=== PATIENT | male | born 1955 | race Two or more races ===

== ENCOUNTER 2024-09-15 07:30 | Inpatient (IN) | payer OTHER ==
[~2024-09-15] VITALS: Ht 58.4 cm; Wt 81.6 kg
[2024-09-15 08:35] VITALS: BP 136/83
[2024-09-15] MEDS ORDERED: MICARDIS40 MG PO (08:43)
[2024-09-15] MEDS ORDERED: [UNRECOGNIZED DRUG - OTHER] (08:44)
[2024-09-15] MEDS ORDERED: GLIPIZIDE ER2.5 MG PO (08:44)
[2024-09-15] MEDS ORDERED: TAMS0.4C PO (08:45)
[2024-09-15 08:46] LABS: HEMATOCRIT 47.3 % (39.0-48.0); HEMOGLOBIN 16.3 g/dL (13-16.00); MEAN CELL VOLUME 87.8 fL (80.0-100.00); MEAN CORPUSCULAR HEMOGLOBIN 30.3 pg (27.00-32.0); MEAN CORPUSCULAR HGB CONC 34.5 g/dl (32.0-36.0); PLATELET COUNT 137 K/uL (150-450); RED BLOOD COUNT 5.38 M/uL (4.00-6.00); RED CELL DISTRIBUTION WIDTH 13.8 % (11.5-14.5)
[2024-09-15 08:49] VITALS: BP 136/83
[2024-09-15 08:52] LABS: PH,URINE 6.5 (5.0-8.0); URINE APPEARANCE Clear; URINE BILIRRUBIN Negative (NEGATIVE); URINE COLOR Yellow; URINE GLUCOSE Negative (NEGATIVE); URINE KETONE Negative (NEGATIVE); URINE LEUKOCYTE Trace; URINE NITRATE Negative; URINE PROTEIN Negative (NEGATIVE)
[2024-09-15 08:59] LABS: URINE EPITHELIAL CELLS 3.1 uL (0.0-38.8); URINE RBC 28.5 uL (0.0-20.8); URINE WBC 14.3 uL (0.0-23.2)
[2024-09-15 09:06] LABS: INR 1.15; PARTIAL THROMBOPLASTIN TIME 29.9 SECONDS (22.0-34.0); PROTHROMBIN TIME 12.4 SECONDS (9.0-11.5)
[2024-09-15 09:33] LABS: URINE BLOOD TRACES; URINE CAST 0.14 uL (0.0-1.40)
[2024-09-15 09:46] LABS: BILIRUBIN TOTAL 1.21 mg/dL (0.3-1.2); CALCIUM 10.5 mg/dL (8.5-10.1); CREATININE SERUM 0.77 mg/dL (0.70-1.30); GFR 100.17; POTASSIUM 3.61 mEq/L (3.5-5.1)
[2024-09-26] MEDS ORDERED: DEXAMETHASONE SODIUM PHOSPHATE 4 MG/ML VIAL ONE (11:31)
[2024-09-26] MEDS ORDERED: CEFAZOLIN SODIUM 1,000 MG VIAL ONE (11:38)
[2024-09-26] MEDS ORDERED: CHLORHEXIDINE GLUCONATE 120 ML BOTTLE TOP ONE (11:38)
[2024-09-26] MEDS ORDERED: POTASSIUM CITR15 MEQ (13:27)
[2024-09-26] MEDS ORDERED: PANTOPRAZOLE SO40 MG (13:27)
[2024-09-26] MEDS ORDERED: FAMOTIDINE40 MG (13:27)
[2024-09-26] MEDS ORDERED: FLONASE16 GM (13:27)
[2024-09-26] MEDS ORDERED: DEXTROSE 50 % IN WATER 0.5 G/ML DISP.SYRIN IV PRN (14:15)
[2024-09-26] MEDS ORDERED: ONDANSETRON HCL 2 MG/ML VIAL IV PRN (14:15)
[2024-09-26] MEDS ORDERED: ENALAPRILAT DIHYDRATE 1.25 MG/ML VIAL IV PRN (14:15)
[2024-09-26] MEDS ORDERED: INSULIN LISPRO 1,000 UNIT/10 ML UNITS SUBCUTANEO PRN (14:15)
[2024-09-26] MEDS ORDERED: MORPHINE SULFATE 4 MG/ML VIAL IV ONE (14:35)
[2024-09-26] MEDS ORDERED: CYCLOBENZAPRINE HCL 5 MG TABLET PO SCH (17:00)
[2024-09-26] MEDS ORDERED: ACETAMINOPHEN 500 MG GEL..CAP PO SCH (17:00)
[2024-09-26] MEDS ORDERED: TRAMADOL HCL 50 MG TABLET PO SCH (17:00)
[2024-09-26] MEDS ORDERED: INSULIN LISPRO 1,000 UNIT/10 ML UNITS SUBCUTANEO ONE (19:05)
[2024-09-26] MEDS ORDERED: PANTOPRAZOLE SODIUM 40 MG/VIAL VIAL IV PUSH SCH (21:00)
[2024-09-27] VITALS: BP 143/83; O2SAT 95
[2024-09-27 08:00] VITALS: BP 144/75; O2SAT 97
[2024-09-27] MEDS ORDERED: TAMSULOSIN HCL 0.4 MG CAP PO SCH (09:00)
[2024-09-27] MEDS ORDERED: GLIPIZIDE 2.5 MG PO SCH (09:00)
== END 2024-09-27 14:10 | disposition home or self-care (01) | DRG 627 ==
LOC: SURG 09-26 06:48 → O/R 09-26 06:48 → SURH 09-26 07:30 → SURG 09-26 14:59
PROVIDERS: ADMIT Surgery; ATTEND Surgery
PROC: 0GBL0ZZ Excision of Right Superior Parathyroid Gland, Open Approach (ICD-10-PCS; 2024-09-26)
PROC: 0GBM0ZZ Excision of Left Superior Parathyroid Gland, Open Approach (ICD-10-PCS; 2024-09-26)
PROC: 0GBN0ZZ Excision of Right Inferior Parathyroid Gland, Open Approach (ICD-10-PCS; principal; 2024-09-26 14:15)
DX: D35.1 Benign neoplasm of parathyroid gland (principal)

== ENCOUNTER 2024-09-30 14:26 | Emergency (ER) | payer OTHER ==
[~2024-09-30] VITALS: Ht 180.3 cm; Wt 81.6 kg
[~2024-09-30 14:26] MED LIST: FAMOTIDINE40 MG; FLONASE16 GM; GLIPIZIDE ER2.5 MG PO; MICARDIS40 MG PO; PANTOPRAZOLE SO40 MG; POTASSIUM CITR15 MEQ; TAMS0.4C PO; [UNRECOGNIZED DRUG - OTHER]
[2024-09-30] MEDS ORDERED: JARDIANCE10 MG PO (15:24)
[2024-09-30 16:56] LABS: HEMOGLOBIN 16.4 g/dL (13-16.00); MEAN CELL VOLUME 88.8 fL (80.0-100.00); MEAN CORPUSCULAR HEMOGLOBIN 29.6 pg (27.00-32.0); MEAN CORPUSCULAR HGB CONC 33.4 g/dl (32.0-36.0); PLATELET COUNT 175 K/uL (150-450); RED BLOOD COUNT 5.53 M/uL (4.00-6.00); RED CELL DISTRIBUTION WIDTH 13.5 % (11.5-14.5)
[2024-09-30 17:21] LABS: ALBUMIN 4.2 gm/dL (3.4-5.0); BILIRUBIN TOTAL 2.02 mg/dL (0.3-1.2); CALCIUM 9.9 mg/dL (8.5-10.1); CREATININE SERUM 0.81 mg/dL (0.70-1.30); GFR 94.48; GLOBULINA 3.8 G/DL (2.4-3.5); POTASSIUM 3.46 mEq/L (3.5-5.1)
[2024-09-30 17:40] LABS: URINE APPEARANCE Clear; URINE BILIRRUBIN Negative (NEGATIVE); URINE BLOOD Negative; URINE COLOR Yellow; URINE KETONE Negative (NEGATIVE); URINE LEUKOCYTE Negative; URINE NITRATE Negative; URINE PROTEIN Negative (NEGATIVE)
[2024-09-30 17:42] LABS: URINE BACTERIA 8.5 uL (0.0-1933); URINE RBC 15.8 uL (0.0-20.8); URINE WBC 7.4 uL (0.0-23.2)
[2024-09-30 17:50] LABS: URINE CAST 0.14 uL (0.0-1.40); URINE GLUCOSE >=1000 MG/DL (NEGATIVE)
== END 2024-09-30 19:26 | disposition home or self-care (01) ==
LOC: ER 14:29
PROVIDERS: General Practice
DX: R20.0 Anesthesia of skin (principal); Z91.041 Radiographic dye allergy status